=== PATIENT | female | born 1970 | race Caucasian/White ===

== ENCOUNTER → 2017-10-29 16:00 | Outpatient (CLI) | payer SELFPAY ==
--- NOTE | 2017-10-29 | EMB_PTH ---
PATIENT: MILIND HARRIS LOC: [facility] U#:[id number] AGE/SX: 54/F ROOM: RE10/29/[address]: Dr. Allan Auguste MD : 1970 BED: DIS: SPEC #: [id number] RECD: 10/30/17 13:23 STATUS: JEWEL GENNY #: [id number] LISANDRA: 10/29/17 00:[address]: Allan Auguste DEPT: SURGICAL PATHOLOGY RECD BY: Rasta Krishna Tissues: Endometrium, NOS Procedures: Surgery Specimen Level IV HEADER OPERATION: Endometrial biopsy PRE-OP DIAGNOSIS: N93.9 TISSUE SUBMITTED: Endometrial biopsy MICROSCOPIC DIAGNOSIS Endometrium, biopsy: Secretory endometrium. AM:kristan 10/31/17 MICROSCOPIC DESCRIPTION Slides are reviewed. GROSS DESCRIPTION Received in fixative is one container labeled with the patient's name and designated endometrial biopsy. The specimen consists of multiple irregular fragments of light bustillos-white soft tissue that in aggregate measure 2.5 x 2 x 0.2 cm. The specimen is totally submitted in one cassette. / AM:kristan 10/30/17 TC:5 CPT: 35535
[2017-11-04 13:23] LABS: HPV Reflexed? NOT INDICATED
== END ==
PROVIDERS: Visit Provider Obstetrics & Gynecology
DX: Z12.4 Encounter for screening for malignant neoplasm of cervix (principal); N93.9 Abnormal uterine and vaginal bleeding, unspecified
CPT/HCPCS: 88175; 88305; G0145

== ENCOUNTER 2017-11-15 06:55 | Day surgery (SDC) | payer SELFPAY, OTHER ==
[2017-11-15] VITALS (7 sets, daily range): BP systolic 99–110; BP diastolic 58–71; PULSE 76–90; RESP 16; TEMP 36.6–36.7; O2SAT 94–100; BMI 33.6
--- NOTE | 2017-11-15 | EMB_PTH ---
PATIENT: MILIND HARRIS [place] [facility] [place][id number] AGE/SX: 47/F ROOM: RE11/15/[address]: Dr. Allan Auguste MD : 1970 BED: DIS: 11/15/2017 SPEC #: [id number] RECD: 11/15/17 11:47 STATUS: JEWEL ROYAL #: [id number] LISANDRA: 11/15/17 00:[address]: Allan Auguste DEPT: SURGICAL PATHOLOGY RECD BY: Rasta Krishna ENTERED: 11/15/17 11:47 SP TYPE: ENDOM BX/C IKE DR: Dr. Allan Klein MD Tissues: Endometrium, NOS Procedures: Surgery Specimen Level IV HEADER OPERATION: Hysteroscopy, dilation and curettage PRE-OP DIAGNOSIS: Menorrhagia and polyp of corpus uteri TISSUE SUBMITTED: Endometrial curettings MICROSCOPIC DIAGNOSIS Endometrium, biopsy: Disordered proliferative endometrium. Chronic endometritis. Benign endocervix with squamous metaplasia. Rare fragments of benign squamous mucosa. AM:kristan 11/18/17 COMMENT Case has been reviewed in consultation with Dr. Anne who concurs with the above diagnosis. IDC:[place] MICROSCOPIC DESCRIPTION Slides are reviewed. GROSS DESCRIPTION Received in fixative is one container labeled with the patient's name and designated endometrial curettings. The specimen consists of multiple fragments of pink hemorrhagic soft tissue mixed with polypoid tissue that in aggregate measure 7.5 x 3 x 0.3 cm. The entire specimen is submitted in three cassettes. / [place]:kristan 11/15/17 TC:3 CPT: 41990
--- NOTE | 2017-11-15 06:51 | HP.PCM_ITS ---
History and Physical Date of Admission: 11/15/17 Surgical History and Physical Aliyah Gotti, a 47 year old female 7 0 0 0 7, presents for D and C and hysteroscopy on November 15, 2017 at 8:45. -- Menorrhagia -- Aliyah is referred per Dr Klein for abnormal Uterine Bleeding. She is a 47yo female with c/o menorrhagia, and menses lasting up to 4wks for the past several mos. LMP began 09/20/17 and subsided 10/19/17. She had stopped bleeding for only 2days between the last 2menses. Hgb drawn 2wks ago was approx 10. Pt sts she is taking many herbal supplements for the past 2mos. Aliyah presents here today with spouse(Khadijah) for follow-up from [facility] ER on 11-08-17 in the evening for elevated temp of 103, fatigue, and a little cramping. 47 y.o. G 7 P 7 non- smoker with concerns regarding excessive bleeding that started 11-01-17 lasting through . Irregular Bleeding which began Seen in [facility] ER 11-08-17. Ada claims it started suddenly and has been present 3 days. It occurs all the time. It is located in the lower abdomen. Ada characterizes it to be non-radiating. Ada characterizes the quality heavy bleeding, cramps. Severity is moderate and not improving and very concerned; Additional comments are: In ER at [facility] 9/7 in evening.; Additional comments are: CT showed ovarian cysts; U/S in office shows benign ovarian cysts and endometrial polyp. MEDICATIONS HISTORY: Current medications prescribed by our practice are: 1. Provera 10 mg tablet, One pill by mouth once a day for 10 days ALLERGIES: No Known Drug Allergies, Augmentin and Shortness of breath Infections - Chicken pox childhood Illnesses - no serious past illnesses Accidents - None Hospitalizations - Childbirth and see surgery Review of Systems: GENERAL - Denies fever, or chills SKIN - Denies skin changes EYES - Denies visual changes EARS - Denies difficulty hearing NOSE - Denies nasal congestion or bleeding MOUTH - Denies sore throat or difficulty swallowing NECK - Denies pain or swelling RESPIRATORY - Denies shortness of breath or wheezing CARDIOVASCULAR - Denies palpitations or chest pain GASTROINTESTINAL - Denies nausea, vomiting, diarrhea, constipation GENITOURINARY - Denies dysuria, frequency of urination, incontinence of urine MUSCULOSKELETAL - Denies joint or muscle pain NEUROLOGICAL - Denies localized numbness or weakness PSYCHIATRIC - Denies depression or anxiety ENDOCRINE - Denies heat or cold intolerance, weight loss or gain HEMATO-IMMUNOLOGIC - Denies excesive bleeding with cuts SOCIAL HISTORY: Alcohol Use - denies drinking Smoking - denies smoking Diet - no special diet Lifestyle - moderate stress lifestyle Exercise - minimal Seat Belt Use - always Employer - Unemployed Job Description - Housewife Illicit Drug Use - None Sexual Activity - Spouse-Sig Other Name - Khadijah Garcia Spouse-Sig Other Occupation - [employer] Control - Natural Family Planning FAMILY HISTORY: MENSTRUAL HISTORY: LMP Known?- YesAmount/Duration - excess amount, Regularity - Irregular, Frequency - variable days, LMP - 11/01/17 PAST PREGNANCIES: Total Pregnancies - 7; Full Term Pregnancies - 7; Premature - 0; Abortions, Induced - 0; Abortions, Spontaneous - 0; Ectopics - 0; Multiple Births - 0; Living Children - 7 SURGICAL HISTORY: 1. none PHYSICAL EXAM BP- 118/70 Sitting, Right arm, regular cuff Weight- 186.72533 lbs Height- 61.5 inch BMI:34.65 CONSTITUTIONAL - NAD, well nourished, and well developed SKIN - No rash, lesions, or ulcers HEENT - Normocephalic, PERRLA, EOMI NECK - No nodes, no nuchal rigidity and thyroid normal size and texture LYMPH NODES - Palpation of lymph nodes in neck and groins within normal limits LUNGS - CTA x2 without wheezes, crackles or rales CARDIAC - Regular rate and rhythm without rubs, murmurs, or gallops ABDOMEN - Without hepatosplenomegaly, distention, masses, rebound, or guarding; normal bowel sounds; no hernias EXTREMITIES - No edema or calf tenderness NEUROLOGICAL - Cranial nerves II-XII grossly intact PSYCHIATRIC - A and O to time, place, person, mood and affect External Genitial Vagina - non-tender without lesions Urethra/Urethral Meatus - non-tender Bladder - non-tender Vagina - vaginal del valle are pink and moist without loss of rugae and no evidence of atropy Cervix - without cervical motion tenderness and has normal size and features without evident lesions Uterus - multiparous size 6 cm & wt 75-125 g Adnexa - clear without massess or tenderness ASSESSMENT/PLAN: 1. Blood Loss Anemia, Menorrhagia and Polyp Of Corpus Uteri Reviewed results of pelvic u/s from office visit today. Discussed options and will proceed with H/S, D and C. Discussed RBAs and all questions answered.
[2017-11-15 07:47] LABS: Hematocrit 27.3 % (37-47); Hemoglobin 8.3 g/dl (12.0-15.0); Mean Corp Hgb Conc 30.4 g/gl (32-36); Mean Corpuscular Hgb 24.7 pg (27.0-32.0); Mean Corpuscular Volume 81.3 fL (81-99); Mean Platelet Vol. 9.3 fl (6.2-12.0); Platelet Count 469 K/mm3 (150-450); RBC Distribution Width CV 14.5 % (11.6-14.6); RBC Distribution Width SD 41.1 fl (35.1-43.9); Red Blood Count 3.36 M/mm3 (4.2-5.4); White Blood Count 7.5 K/mm3 (4.4-11.0)
[2017-11-15 07:48] LABS: Scan Indicated on CBC? Y/N NO
[2017-11-15 08:12] LABS: Internal QC Validated? YES +Cl - CLEAR BKGD; Pregnancy, Urine Negative Negative
--- NOTE | 2017-11-15 08:42 | PCM.OP.BLANK ---
Operative Report Date of Procedure: 11/15/17 Surgeon: Allan Auguste MD, FACOG Anesthesia: Pasha Allan CRNA; Titi Auguste MD Type of Anesthesia: MAC Pre-Op Diagnosis: Menorrhagia, Endometrial Polyps Postoperative diagnosis: Menorrhagia, endometrial polyps Procedure: Diagnostic Hysteroscopy, Dilation and Curettage Findings: 8 cm endometrial cavity with multiple endometrial polyps seen. No fibroids present. Cervix which protruded to within 2-3 cm of the perineum with tenaculum pulldown. Open perineum. LAVH should be technically feasible. Indications: This is a 47 year old patient who has the above diagnosis. The patient has been counseled regarding the risk and indications of this procedure including the possibility of bleeding, infection, and injury to surrounding structures such as bowel bladder. All questions were answered to reconsider the patient well-informed. Procedure: The patient was taken to the operating room where after induction of general anesthesia, she was placed in the dorsolithotomy position and prepped and draped in the usual sterile fashion. Anterior cervix was grasped with the tenaculum and dilated to about 4-5 mm. A 3 mm hysteroscope was placed in the uterus of the above findings were noted. Cervix was dilated to about 7-8 mm and uterus was gently curetted removing all contents. Hysteroscope was reinserted and all material was noted to be removed. In the course of the procedure approximately 100 cc of glycine distending media was used and virtually all of this was recovered. Patient tolerated procedure well was taken to recovery room in satisfactory condition sponge instrument and needle counts were all reportedly correct. Estimated blood loss for the case was minimal. Specimens to pathology was endometrial curettings
--- NOTE | 2017-11-15 08:44 | DCINST_ITS ---
Discharge Diet: No Restrictions Discharge Activity: Return to Normal Activity, May Shower, May Take a Tub Bath Call your doctor if you observe: Fever of 101 or Higher, Inability to urinate, Inability to have a bowel movement, Using more than one pad per hour Allergies/Adverse Reactions: Allergies amoxicillin [From Augmentin] Allergy (Verified 11/15/17 07:39) Shortness of breath clavulanic acid [From Augmentin] Allergy (Verified 11/15/17 07:39) Shortness of breath Medications to take at Discharge NK [NK] 11/13/17 Primary Care Physician: Allan Klein [Primary Care Provider] - Test Results: Test results from this visit will be discussed in further detail at your follow- up appointment, if applicable. Please Follow Up With: Allan Auguste MD When: 2-3 weeks
== END 2017-11-15 11:14 | disposition home or self-care (01) ==
LOC: SDC 07:03 → AC 07:03
PROVIDERS: Family Provider Family Medicine; PCP Family Medicine; Visit Provider Obstetrics & Gynecology
PROC: 0UDB8ZZ Extraction of Endometrium, Via Natural or Artificial Opening Endoscopic (ICD-10-PCS; CPT 58558; principal; 2017-11-15 08:35)
DX: N84.0 Polyp of corpus uteri (principal); N71.1 Chronic inflammatory disease of uterus; D50.0 Iron deficiency anemia secondary to blood loss (chronic)
CPT/HCPCS: 58558; 81025; 85027; 86850; 86900; 88305; J7120; J2405

== ENCOUNTER → 2021-01-11 | Outpatient (CLI) | payer SELFPAY ==
--- NOTE | 2021-01-11 14:40 | EMB_PTH ---
PATIENT: MILIND HARRIS LOC: [facility] U#:[id number] AGE/SX: 50/F ROOM: RE01/11/[address]: Dr. Allan Auguste MD : 1970 BED: DIS: 01/11/2021 SPEC #: [id number] RECD: 01/11/21 17:03 STATUS: JEWEL GENNY #: [id number] LISANDRA: 01/11/21 14:[address]: Allan Auguste DEPT: SURGICAL PATHOLOGY RECD BY: Vee Mclaughlin ENTERED: 01/12/21 12:23 SP TYPE: ENDOM BX/C IKE DR: Dr. Allan Klein MD Tissues: Endometrium, NOS Procedures: Surgery Specimen Level IV HEADER OPERATION: Endometrial biopsy PRE-OP DIAGNOSIS: Postmenopausal bleeding TISSUE SUBMITTED: Endometrial biopsy MICROSCOPIC DIAGNOSIS Endometrial biopsy: Proliferative endometrium. SJ:kristan 01/13/2021 MICROSCOPIC DESCRIPTION Slides are reviewed. GROSS DESCRIPTION Received is one container labeled with the patient's name and not further designated. The specimen consists of multiple fragments of hemorrhagic soft tissue that in aggregate measure 2 x 1.5 x 0.2 cm. The specimen is totally submitted in one cassette. / SJ:kristan 01/12/21 TC:4 CPT: 25062
[2021-01-17 16:42] LABS: HPV Reflexed? NOT INDICATED
== END | disposition home or self-care (01) ==
LOC: LABSPEC 15:34
PROVIDERS: PCP Family Medicine; Visit Provider Obstetrics & Gynecology
DX: Z12.4 Encounter for screening for malignant neoplasm of cervix (principal); N95.0 Postmenopausal bleeding
CPT/HCPCS: 88175; 88305; G0145